=== PATIENT | female | born 1960 | race Caucasian/White ===

== ENCOUNTER 2017-03-06 02:59 | Observation (INO) | payer OTHER ==
[~2017-03-06] VITALS: Ht 154.9 cm; Wt 113.4 kg
[~2017-03-06 02:59] MED LIST: LEXAPRO20 M1 PO; LYRICA100 M1 PO; OMEPRAZOLE20 M2 PO; XARELTO10 M1 PO
--- NOTE | 2017-03-06 13:05 | Admission Core Measures ---
Admission Meds I reviewed the following Meds: Current Medications Sig/Mayda Start time Last Medication Dose Stop Time Status Admin Cefazolin Sodium 3,000 MG ONCE 03/06 0000 NR (Kefzol-Ancef Inj) 03/06 2359 Escitalopram Oxalate 20 MG DAILY 03/06 1254 UNVr (Lexapro) Omeprazole 20 MG DAILY 03/06 1255 UNVr (Prilosec) Pregabalin 100 MG DAILY 03/06 1255 UNVr (Lyrica) Acute Coronary Syndrome Inclusion Criteria ACS Diagnosis No Inpatient Core Measures LDL Reminder: If No, please order W/I first 24hr of stay Congestive Heart Failure Inclusion Criteria CHF Diagnosis No Cerebrovascular accident Inclusion Criteria CVA/TIA Diagnosis No Inpatient Core Measures Bedside Swallow Eval Reminder: If BSE failed, place ST order Antithrombotic Reminder: Order Antithrombotic Medication by end of day 2 Antithrombotic Reminder: Document Reason Antithrombotic Not ordered by end of day 2 AFIB/Flutter Reminder: If Present, add to problem list AFIB/Flutter Reminder: Order Anticoag Medication for pts with AFIB/Flutter Atherosclerosis Reminder: If Present, add to problem list LDL Reminder: If No, please order W/I first 24hr of stay PT Order Reminder: If No, please order Venous thromboembolism Inpatient Core Measures VTE Risk Factors: Age > 40, Surgery No [facility] VTE prophylaxis d/t No contraindications No VTE Pharm Prophylaxis d/t VTE low risk Inclusion Criteria - Per Current guidelines, there needs to be overlap - treatment for the first 5 days of Warfarin therapy. - Parenteral Anticoagulation (IV or SC) needs to be - given along with Warfarin therapy. VTE Diagnosis No VTE Type NONE VTE Confirmed by (Test) NONE Problem List As ranked by this Provider includes Assessment & Plan 1. Incisional hernia HOME MEDS Home Med List Escitalopram Oxalate (Lexapro) 20 MG TABLET 1 TAB PO DAILY DEPRESSION ( Reported) Omeprazole 20 MG CAPSULE.DR 1 CAP PO DAILY GERD (Reported) Pregabalin (Lyrica) 100 MG CAPSULE 1 CAP PO DAILY DEPRESSION (Reported) Rivaroxaban (Xarelto) 10 MG TABLET 1 TAB PO DAILY DVT (Reported)
--- NOTE | 2017-03-06 13:50 | Operative Report ---
Operative/Inv Procedure Report Surgery Date: 03/06/17 Name of Procedure: Bilateral transversus abdominus component release. laparoscopic converted to open incisional hernia repair with biologic mesh Pre-Operative Diagnosis: incisional hernia Post-Operative Diagnosis: same Estimated Blood Loss: less than 50ml Surgeon/Director Of Retention: YUNG WAGGONER,NAVA Barrios/Sharon BAKER Anesthesia: general endotracheal tube Implants: 20 x 10 cm Strattice mesh Drains: 15 [place] round Specimens: Hernia sac Operative/Procedure Note Note: After consent she is brought to the operating room laid supine. Gen. anesthesia was obtained and her abdomen was prepped and draped. The skin and left upper quadrant was after local anesthesia and a transverse incision made sharply. We gained access the peritoneum using a 12 mm optical trocar. Pneumoperitoneum was achieved. Abdomen was explored. There is no overt bowel injury. The defect was assessed. Unbeknownst to me, there were 3 fascial defects largest of which was at least 10 cm in dimension. Clinically she felt like she had one fascial defect. Given the new findings we reassess the suitability of laparoscopic repair of her hernia. Was my impression that laparoscopic bridging repair would carry a very high recurrence rate therefore i decided to abort the laparoscopic portion of the case. A midline incision was then made sharply. Subcutaneous tissues were dissected with cautery area we encountered multiple fascial defects with hernia sacs at each the them. We dissected them down to the fascia and excised them. At this point we measured the overall defect. It was quite large. Require mesh of at least 30 cm longitudinally. Again I felt that this would be unsuitable for bridging with a high recurrence risk. I therefore elected to perform component separation as this would be a better long-term solution for her. So we created planes bilaterally along the fascial edges anteriorly to mobilize the skin off of and a little bit. I performed transverse abdominis release bilaterally. We incised the fascia to get a plane behind the posterior rectus. Started on the right side and then incised the internal oblique laterally to release the transversus fascia. This was done from the costal margin down to below the arcuate line. We then performed the same thing on the contralateral side. The dissection was quite difficult due to the obese body habitus. After release both sides hemostasis was assessed and achieved with cautery. I then closed the transversus abdominis fascia with a running 0 Maxon suture. It actually came together quite well with only moderate tension. I then chose a onlay of mesh using Stratus. After the fascia was closed the longitudinal defect was 20 cm. This was largest size of Stratus that we had so I used that and placed it over the transversus abdominis. It was tacked circumferentially underneath with 0 Maxon sutures and then the external fascia was adhered to the mesh circumferentially with interrupted 0 Maxon sutures. The result was that the central portion of the biologic mesh was exposed. We then irrigated the wound with normal saline. Incision was then closed in layers of Vicryl and skin doyle. Prior to closure a 15 [place] drain was placed on top of the mesh. It was anchored to the skin with nylon. Sterile dressings applied. Sponge and needle counts are correct CC: VA WAGGONER,KENZIE Hubbard
--- NOTE | 2017-03-06 16:00 | NUR ---
PT ARRIVED TO FLOOR AT 1600 VIA STRETCHER FROM ER. PT ASSISTED TO HOSP BED BY TRANSFER. PT A/V/OX3. ON 2LNC, RA AT BASELINE. PT WEARS CIPAP AT NIGHT, RESP MADE AWARE & IN TO SEE PT. VITAL SIGNS STABLE. #20 RH INFUSING D5NS @ 125ML/HR PER EMAR. PT C/O PAIN TO ABD 4/10 MEDICATED WITH PERCOCET PER EMAR. 3 DRESSINGS TO ABD. MIDLINE DRESSING WITH BLOODY DRAINAGE, SURGICAL PA MADE AWARE. PT DENIES ANY N/V. +BS, ON CLEAR LIQUID DIET. LAST BM 03/06/17. BROWN IN PLACE DRAINING TO GRAVITY. PT INSTRUCTED TO USE CALL LANDIS WHEN NEEDS ASSISTANCE, IND AT HOME. OBSERVATION COMPLETED. WILL CONTINUE TO MONITOR.
[2017-03-06 16:07] VITALS: BP 130/80
--- NOTE | 2017-03-06 17:02 | PN- General Surgery ---
Subjective Subjective: POC S/P LAP TO OPEN VENTRAL HERNIA REPAIR RESTING COMFORTABLY NOW DENIES CP, SOB, NO N+V WITH CLEARS DENIES , BLURRED VISION, CLARKE, DIZZINESS Objective Vital Signs and I&Os Vital Signs Date Time Temp Pulse Resp B/P B/P Pulse O2 O2 Flow FiO2 Mean Ox Delivery Rate 03/06 1607 97.8 100 18 130/80 98 Nasal 2.0L Cannula Physical Exam: CV: RRR LUNGS: CLEAR ABD: +BS, OBESE, BLOODY DRAINAGE ON DRESSING KALLI WITH SANGUINOUS DRAINAGE NO GUARDING TO PALP EXT: WARM, PULSES INTCGT Assessment/Plan Assessment/Plan SURGICAL STABLE PLAN MAY BE ON CLEARS TOLERATED OOB/AMBULATE HEP SQ FRO DVT PROPHYLAXIS ?RESTART XARELTO ENCOURAGE IS Core Measures/Miscellaneous Venous Thromboembolism VTE Risk Factors: Age > 40, Obesity, Surgery VTE Contraindications: No Contraindications VTE Diagnosis: No VTE Type: NONE VTE Confirmed by (Test): NONE Beta Erick Is Beta Erick a Home Med? No Antibiotics Is Patient on Antibiotics? Yes If Yes: prophylaxis
[2017-03-06 18:00] VITALS: BP 102/74
[2017-03-06 19:46] VITALS: BP 122/68
--- NOTE | 2017-03-06 19:47 | NUR ---
PTS PULSE 120, DENIES ANY PALPITATIONS OR CHEST PAIN, RESTING COMFORTABLY IN BED. SURG PA MADE AWARE. TO RECHECK IN 30 MIN. WILL CONTINUE TO MONITOR.
--- NOTE | 2017-03-06 20:56 | NUR ---
PTS PULSE REMAINS 120, ASYMPOMATIC, SLEEPING IN BED. SURGICAL PA AT BEDISDE TO EVALUATE PT. ONE TIME BOLUS OF 500ML NS ORDERED AND GIVEN PER EMAR. REASSESSMENT OF PTS PULSE AT 2140- 108. SURGICAL PA AWARE. WILL CONTINUE TO MONITOR.
[2017-03-06 22:19] VITALS: BP 120/78
[2017-03-07 02:30] VITALS: BP 100/70
[2017-03-07 07:24] VITALS: BP 98/70
--- NOTE | 2017-03-07 07:57 | PN- General Surgery ---
Subjective Subjective: Awake, alert complaining of incisional pain - tolerable No nausea, tolerating clears, no flatus yet but feels intestinal movement Objective Vital Signs and I&Os Vital Signs Date Time Temp Pulse Resp B/P B/P Pulse O2 O2 Flow FiO2 Mean Ox Delivery Rate 03/07 0724 98.1 120 20 98/70 95 Room Air 03/07 0230 97.8 114 20 100/70 93 Room Air 03/07 0113 114 90 05/04 0000 CPAP 2.0L 03/06 2219 98.9 115 20 120/78 90 CPAP 03/06 2143 108 96 / 1946 98.4 120 20 122/68 96 Nasal 2.0L Cannula 03/06 1800 97.5 105 20 102/74 98 Room Air 03/06 1607 97.8 100 18 130/80 98 Nasal 2.0L Cannula 03/06 1600 Nasal 2.0L Cannula Intake & Output 03/07 0800 05/04 0000 05/03 1600 /03 0800 05/03 0000 /02 1600 Intake Total 1000 1975 Output Total 330 460 Balance 670 1515 Intake, IV 1000 1375 Intake, Oral 600 Output, 80 60 Drainage Output, Urine 250 400 Patient 250 lb Weight Physical Exam: vss, afebrile General: alert and oriented times three Chest: clear anteriorly bilaterally Abd: hypoactive bs, nondistended Wound: dressed, dry CUONG: serosang Assessment/Plan Assessment/Plan 56 yo female with history of subtotal colectomy now pod 1 s/p ventral hernia repair lap to open advance diet as tolerated ambulate - PT to see monitor cuong output joya ji and IVF will discuss with Dr Jasmine Core Measures/Miscellaneous Venous Thromboembolism VTE Risk Factors: Age > 40, Obesity, Surgery VTE Contraindications: No Contraindications VTE Diagnosis: No VTE Type: NONE VTE Confirmed by (Test): NONE Beta Erick Is Beta Erick a Home Med? No Antibiotics Is Patient on Antibiotics? Yes If Yes: prophylaxis
[2017-03-07 08:02] LABS: ABSOLUTE BASOPHIL COUNT 0 /CUMM (0.0-0.2); ABSOLUTE EOSINOPHIL COUNT 0 /CUMM (0.0-0.7); ABSOLUTE GRANULOCYTE CT 9.8 /CUMM (1.4-6.5); ABSOLUTE LYMPH COUNT 1.1 /CUMM (1.2-3.4); ABSOLUTE MONOCYTE COUNT 1.7 /CUMM (0.10-0.60); BASOPHIL % 0 % (0.0-2.0); EOSINOPHIL % 0.1 % (0-5); GRANULOCYTE % 77.8 % (42.2-75.2); HEMATOCRIT 27.8 % (37-47); MEAN CORPUSCULAR HGB 20.2 PG (27.0-31.0); MEAN CORPUSCULAR HGB CONC 31.4 G/DL (33.0-37.0); MEAN CORPUSCULAR VOLUME 64.3 FL (81.0-99.0); PLATELET COUNT 324 /CUMM (130-400); RBC DISTRIBUTION WIDTH 18.8 % (11.5-14.5); RED BLOOD CELL CT 4.32 /CUMM (4.20-5.40); WHITE BLOOD CELL COUNT 12.6 /CUMM (4.8-10.8)
[2017-03-07 09:30] VITALS: BP 120/74
--- NOTE | 2017-03-07 09:47 | NUR ---
ATTEMPTED TO WEAN PT'S OXYGEN. PT WEARS NOCTURNAL CPAP AND HAD STABLE OXYGEN SATURATIONS OVERNIGHT. SATURATION ORIGINALLY 93% WHILE ON RA. PT GIVEN PAIN MEDICATIONS AND BECAME SOMEWHAT SLEEPY. VITALS RE-CHECKED. OXGYEN RANGING BETWEEN 82-89% ON RA. PLACED BACK ON 2L, SATURATION QUICKLY RETURNED TO 95%. HEART RATE ALSO INTHE MID 120'S AT THIS TIME. PER PT, HAS A HISTORY OF TACHYCARDIA BUT HAS BEEN "UNDER CONTROL AND MY DOCTOR SAYS I DONT NEED ANY MEDICATIONS". REPORTED TO OLIVIA HARRIS. IST EDUCATION COMPLETED AND PT DEMONSTRATES UNDERSTANDING. PT ALSO ENCOURAGED THAT SHE NEEDS TO GET OUT OF BED. PT STATING THAT WHEN HER ARRIVES SHE WILL GET OUT OF THE BED. WILL MONITOR.
[2017-03-07 15:20] VITALS: BP 118/64
--- NOTE | 2017-03-07 18:49 | PN- General Surgery ---
Surgical Brief Attending Note Brief Attending Note: As per PA note. Doing well after component separation. Tolerating clears. continue clears until tomorrow. Anticipate d/c home 03/08/17. F/U next week for drain removal. Restart Xarelto 03/09/17.
--- NOTE | 2017-03-07 20:15 | NUR ---
SHIFT NOTE- PT A/O X 3, ON 2L, LUNGS DIMINISHED, IST AT BEDSIDE, CPAP FOR HS HISTORY OF SLEEP APNEA. DRESSING TO MIDLINE ABD CD+I, 2 SMALL DRESSINGS TO LEFT ABD CD+I, KALLI DRAIN TO LOWER ABD DRAINING SS FLUID. CALLED BY PT STATING THAT DRAIN "HAS LEAKED" IN BEGINNING OF SHIFT, MODERATE AMT OF DRAINAGE ON PT'S GOWN. GOWN CHANGED, KALLI DRAIN WAS OPEN. JPD CLOSED AND WILL CONTINUE TO MONITOR. ALPS ON IN BED. PT STATING +FLATUS. HYPOACTIVE BS. PLAN IS TO CONTINUE CLEARS UNTIL TOMORROW MORNING. C/O PAIN TO ABD 4/10 "BUT ABOUT A 9 WHEN I MOVE"- MEDICATED WITH PRN PERCOCET 2 TABS REQUESTED BY PT. DENIES NAUSEA. HAT IN BATHROOM- MEASURING I/O. WILL CONTINUE TO MONITOR.
[2017-03-07 22:00] VITALS: BP 130/90
[2017-03-08 06:41] VITALS: BP 120/76
--- NOTE | 2017-03-08 08:00 | PN- General Surgery ---
See Addendum Subjective Subjective: Patient reports feeling well. States that she passed flatus and had a small but formed bowel movement overnight. Denies nausea and vomitting. Denies chest pain, shortness of breath and difficulty breathing. Has been OOB to bathroom and chair without difficulty. Feels incisional pain is well controlled with percocet. Objective Vital Signs and I&Os Vital Signs Date Time Temp Pulse Resp B/P B/P Pulse O2 O2 Flow FiO2 Mean Ox Delivery Rate 03/08 0641 98.2 101 20 120/76 93 Room Air 03/08 0047 102 97 03/08 0000 CPAP 03/07 2241 104 99 / 2200 98.1 115 20 130/90 96 Nasal 2.0L Cannula 03/07 1600 Nasal 2.0L Cannula 03/07 1520 98.7 116 20 118/64 96 03/07 0931 95 Nasal 2.0L Cannula 03/07 0930 99.1 126 20 120/74 88 Room Air 03/07 0800 95 Nasal 2.0L Cannula Intake & Output 03/08 0800 03/08 0000 04 1600 03/07 0800 03/07 0000 03 1600 Intake Total 320 080 633 6854 1975 Output Total 400 550 370 380 460 Balance -80 -50 958 961 8683 Intake, IV 1000 1375 Intake, Oral 320 500 600 600 Output, 170 80 60 Drainage Output, Urine 400 550 200 300 400 Patient 250 lb Weight Physical Exam: General : Alert and oriented x3, no acute distress Cardiac: sinus rhythm, tachycardic Pulm: Clear to auscutation bilaterally Abdomen: Obese, gil-incisional tenderness, hyperactive bowel sounds auscultated Extremities: Moves all extremities, distal sensations intact. Skin warm and well perfused. Bialteral calves soft and non-tender Surgical site: Abdomen: Dressing stained with dry blood, changed today, skin edges well approximated, no surrounding erythema to main incision, small amount of serous drainage from superior aspect of incision, non-purulent. New dressing applied. Drain: KALLI holding suction, mild to moderate amount of serosanguinous drainage. Laparoscopic port site, no erythema, no drainage. Assessment/Plan Assessment/Plan This is a 56 year old female, POD 2, s/p component separation and repair of incisional hernia. 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 -Advance diet this am, pt tolerated clears and has bowel function -F/U CBC, consider transfusion if h&h continues to drop, pt currently asymptomatic -Continue current pain regimen -Continue OOB -Consider d/c to home today with home health services -Will discuss with Dr. Peters prior to arranging for discharge Core Measures/Miscellaneous Venous Thromboembolism VTE Risk Factors: Age > 40, Obesity, Surgery VTE Contraindications: No Contraindications VTE Diagnosis: No VTE Type: NONE VTE Confirmed by (Test): NONE Beta Erick Is Beta Erick a Home Med? No Antibiotics Is Patient on Antibiotics? Yes If Yes: prophylaxis
[2017-03-08 08:51] LABS: ABSOLUTE BASOPHIL COUNT 0 /CUMM (0.0-0.2); ABSOLUTE EOSINOPHIL COUNT 0.2 /CUMM (0.0-0.7); ABSOLUTE GRANULOCYTE CT 9.2 /CUMM (1.4-6.5); ABSOLUTE LYMPH COUNT 1.6 /CUMM (1.2-3.4); ABSOLUTE MONOCYTE COUNT 1.6 /CUMM (0.10-0.60); BASOPHIL % 0.4 % (0.0-2.0); EOSINOPHIL % 1.3 % (0-5); GRANULOCYTE % 72.8 % (42.2-75.2); HEMATOCRIT 26.3 % (37-47); MEAN CORPUSCULAR HGB 20.1 PG (27.0-31.0); MEAN CORPUSCULAR HGB CONC 30.9 G/DL (33.0-37.0); MEAN PLATELET VOLUME 8.8 FL (7.4-10.4); PLATELET COUNT 287 /CUMM (130-400); RBC DISTRIBUTION WIDTH 18.9 % (11.5-14.5); RED BLOOD CELL CT 4.05 /CUMM (4.20-5.40); WHITE BLOOD CELL COUNT 12.7 /CUMM (4.8-10.8)
[2017-03-08 10:37] LABS: MEAN CORPUSCULAR VOLUME 64.9 FL (81.0-99.0)
[2017-03-08 14:29] VITALS: BP 130/80
--- NOTE | 2017-03-08 14:49 | NUR ---
PT'S H/H IS 8.1 AND 26.3. SURGICAL SARAH MATTHEWS IS AWARE. WILL CONTINUE TO MONITOR.
[2017-03-08] MEDS ORDERED: COLACE100 M1 PO (15:47)
[2017-03-08] MEDS ORDERED: PERCOCET 5-3251 EACH PO (15:47)
--- NOTE | 2017-03-08 15:52 | Patient Discharge Instructions ---
Discharge Instructions General Discharge Information You were seen/treated for: INCISIONAL HERNIA You had these procedures: LAPAROSCOPIC CONVERTED TO OPEN REPAIR INCISIONAL HERNIA Watch for these problems: INCREASING PAIN, DRAINAGE, REDNESS, WARMTH. NAUSEA AND VOMITTING. INABILITY TO URINATE OR MOVE BOWELS. FEVER GREATER THAN 101.5 Call Surgeon to remove: Other, DRAIN Do not soak the wound: Yes Daily wet to dry dressings: No No bath, but you may shower: Yes Other wound care: KEEP WOUND CLEAN AND DRY Special Instructions: FOLLOW UP WITH COLORER MACHINE, TECHNOLOGY SOLUTIONS ARCHITECT AND PRIMARY CARE PHYSICIAN. REPORT TO EMERGENCY ROOM IF YOU NOTICE CHEST PAIN, SHORTNESS OF BREATH, DIFFICULTY BREATHING, AND LIGHT HEADEDNESS. RESTART XARELTO ON Saturday03/09/2017 Diet Continue normal diet: Yes Recommended Diet: Regular Additional DIET Information: ADVANCE TOLERATED Activity Full Activity/No Limits: No Activity Self Limited: Yes Pounds, do NOT lift more than: 5 Acute Coronary Syndrome Inclusion Criteria At DC or during hospital stay patient has or had the following: ACS DIAGNOSIS No Discharge Core Measures Meds if any: Prescribed or Continued at Discharge Meds if any: NOT Prescribed or Continued at Discharge Congestive Heart Failure Inclusion Criteria At DC or during hospital stay patient has or had the following: CHF DIAGNOSIS No Discharge Core Measures Meds if any: Prescribed or Continued at Discharge Meds if any: NOT Prescribed or Continued at Discharge Cerebrovascular accident Inclusion Criteria At DC or during hospital stay patient has or had the following: CVA/TIA Diagnosis No Discharge Core Measures Meds if any: Prescribed or Continued at Discharge Meds if any: NOT Prescribed or Continued at Discharge Venous thromboembolism Inclusion Criteria VTE Diagnosis No VTE Type NONE VTE Confirmed by (Test) NONE Discharge Core Measures - Per Current guidelines, there needs to be overlap - treatment for the first 5 days of Warfarin therapy. - If discharged on Warfarin prior to 5 days of - overlap therapy, the patient will need to be - assessed for post discharge needs including - *Post discharge parental anticoagulation - *Warfarin and/or parental anticoagulation education - *Follow up date to check INR post discharge At least 5 days overlap therapy as Inpatient No Meds if any: Prescribed or Continued at Discharge Note: Overlap Therapy is Warfarin and Anticoagulant Meds if any: NOT Prescribed or Continued at Discharge
== END 2017-03-08 16:50 ==
LOC: STS 02:59 → PACUH 10:25 → ENRESERV 15:08 → 2NA 15:57 → ENPENDDIS 03-08 16:11 → 2NA 03-08 16:50
PROVIDERS: Physician Assistant Surgical; ADMIT Surgery
DX: K43.2 Incisional hernia without obstruction or gangrene (principal); Z53.31 Laparoscopic surgical procedure converted to open procedure; K50.90 Crohn's disease, unspecified, without complications; K21.9 Gastro-esophageal reflux disease without esophagitis; Z86.718 Personal history of other venous thrombosis and embolism; E66.01 Morbid (severe) obesity due to excess calories; Z68.41 Body mass index [BMI] 40.0-44.9, adult; M79.7 Fibromyalgia; F98.8 Other specified behavioral and emotional disorders with onset usually occurring in childhood and adolescence; G47.33 Obstructive sleep apnea (adult) (pediatric)
CPT/HCPCS: 1288; 1328; 1425; 1530; 1748; 82436; 87086; 88302; 96372; C9399; G0378; J0131; J0690; J1644; J2405; J7040; J7042

== ENCOUNTER → 2017-05-08 | Day surgery (SDC) | payer OTHER ==
[~2017-05-08] VITALS: Ht 152.4 cm; Wt 108.9 kg
[~2017-05-08] MED LIST changes: +COLACE100 M1 PO; +PERCOCET 5-3251 EACH PO
--- NOTE | 2017-05-08 15:09 | Operative Report ---
Operative/Inv Procedure Report Surgery Date: 05/08/17 Name of Procedure: Incision and drainage of complex postoperative wound infection. Explantation of mesh Pre-Operative Diagnosis: Wound infection Post-Operative Diagnosis: Same Estimated Blood Loss: scant Surgeon/Tents Assembler: YUNG WAGGONER,NAVA Barrios/Navdeep Ford Anesthesia: laryngeal mask airway Drains: [place] Microbiology: Fluid and mesh for culture Operative Indication: 56-year-old woman approximately 8 weeks post abdominal wall reconstruction for massive incisional hernia. Previously transversus abdominis release was performed bilaterally with onlay of biologic mesh. She has since developed spontaneous drainage, purulence from the umbilicus. CT scan showed an intact hernia repair but a chronic seroma appearance above the mesh. She presents for exploration Operative/Procedure Note Note: After consent she is brought to the operating room and laid supine. Gen. anesthesia was obtained and her abdomen was prepped and draped. There was a sinus tract through the umbilicus. A Bijal clamp was placed into it and a large cavity was identified. Its incision was made through the skin along the tract identified by the clamp. We carried dissection down to the deeper tissues with cautery. There was a large amount of purulent material that was evacuated and a portion was sent for culture. We also found mesh floating in pus. The mesh was evacuated. There was a large granulating cavity. The granulation tissue was circumferentially curetted. The wound was pulse lavaged with normal saline. Repeat evaluation revealed that much of the granulation had been evacuated there is no further purulence. Hemostasis was achieved with direct pressure. I placed a [place] drain into the wound and secured to the skin. The skin was then closed with interrupted mattress sutures using 3-0 nylon. A portion was left open around the [place] drain. CC: VA WAGGONER,NAVDEEP Hubbard
== END ==
LOC: STS 02:25
DX: T81.4XXA Infection following a procedure, initial encounter (principal); L76.34 Postprocedural seroma of skin and subcutaneous tissue following other procedure; Y83.8 Other surgical procedures as the cause of abnormal reaction of the patient, or of later complication, without mention of misadventure at the time of the procedure; K50.90 Crohn's disease, unspecified, without complications; Z86.718 Personal history of other venous thrombosis and embolism; Z79.01 Long term (current) use of anticoagulants
CPT/HCPCS: 87070; 87075; 87184; 87071; 87147; J0131; J2250